=== PATIENT | female | born 1990 | race Two or more races ===

== ENCOUNTER 2019-12-09 14:00 | Inpatient (IN) | payer OTHER ==
[~2019-12-09] VITALS: Ht 170.2 cm; Wt 3.2 kg
[~2019-12-09 14:00] MED LIST: PRIMACARE SOFT1 EACH PO
[2019-12-15] MEDS ORDERED: METFORMIN HCL500 MG PO (07:43)
== END 2019-12-18 14:03 | DRG 788 ==
LOC: O/R 12-15 07:14 → OB/GYN 12-15 07:14
PROVIDERS: ADMIT Obstetrics & Gynecology Maternal & Fetal Medicine; ATTEND Obstetrics & Gynecology Maternal & Fetal Medicine
PROC: 4A0HXFZ Measurement of Products of Conception, Cardiac Rhythm, External Approach (ICD-10-PCS; 2019-12-15)
PROC: 10D00Z1 Extraction of Products of Conception, Low, Open Approach (ICD-10-PCS; principal; 2019-12-15 10:15)
DX: O82 Encounter for cesarean delivery without indication (principal); O24.429 Gestational diabetes mellitus in childbirth, unspecified control; Z3A.38 38 weeks gestation of pregnancy; Z37.0 Single live birth